=== PATIENT | female | born 1950 | race African-American/Black ===

== ENCOUNTER 2017-12-25 17:47 | Inpatient (IN) | payer MEDICARE, OTHER ==
[2017-12-25] MEDS: ONDANSETRON (ODT) 4 MG TAB ODT (18:18)
[2017-12-25] MEDS: HYDROCODONE/APAP (5/325) TAB PO (18:19)
[2017-12-25] MEDS ORDERED: NA PHOSPHATE/BIPHOS 133 ML ENEMA PR (19:30)
[2017-12-25] MEDS ORDERED: NACL 0.9% 3 ML SYG IV (19:30)
[2017-12-25] MEDS ORDERED: NITROGLYCERIN (SL) 0.4 MG TAB SL (19:30)
[2017-12-25 19:34] LABS: ADD MAN DIFF? NO
[2017-12-25] MEDS: ONDANSETRON 4 MG INJ IV (19:35)
[2017-12-25] MEDS: morphine 4 MG/ML VIAL IV (19:36)
[2017-12-25 19:40] LABS: ABNORMAL IP MESSAGE 1; BASOPHILS % 0.2 % (0.0-2.0); EOSINOPHILS # 0.1 10^3/ul (0.0-0.5); EOSINOPHILS % 1.1 % (0.0-7.0); HEMATOCRIT 29.6 % (37.0-47.0); HEMOGLOBIN 8.4 g/dl (12.0-16.0); LYMPHOCYTES # 1.7 10^3/ul (0.8-2.9); LYMPHOCYTES % 20.4 % (15.0-51.0); MEAN CORPUSCULAR HGB CONC 28.4 g/dl (32.0-37.0); MEAN CORPUSCULAR VOLUME 88.1 fl (82.0-101.0); MEAN PLATELET VOLUME 11.2 fl (7.4-10.4); MONOCYTE # 0.8 10^3/ul (0.3-0.9); MONOCYTES % 9.4 % (0.0-11.0); NEUTROPHIL # 5.5 10^3/ul (1.6-7.5); NEUTROPHILS % 68.4 % (39.0-77.0); PLATELET COUNT 276 10^3/UL (140-415); RED BLOOD COUNT 3.36 10^6/ul (4.20-5.40); RED CELL DISTRIBUTION WIDTH 17.7 % (11.5-14.5)
[2017-12-25 19:40] LABS: WHITE BLOOD COUNT 8.1 10^3/ul (4.8-10.8)
[2017-12-25 19:41] LABS: POSITIVE DIFF @See below
[2017-12-25] MEDS: HYDROmorphONE 0.5 MG/0.5 ML SYG IV (19:52)
[2017-12-25 20:00] LABS: ANION GAP 11 (8-16); BLOOD UREA NITROGEN 33 mg/dl (7-20); CALCIUM 9.1 mg/dl (8.4-10.2); CARBON DIOXIDE 32 mmol/L (21-31); CHLORIDE 104 mmol/L (97-110); CREATININE 1.55 mg/dl (0.44-1.00); GLUCOSE 202 mg/dl (70-220); SODIUM 141 mmol/L (135-144)
[2017-12-25 20:01] LABS: POTASSIUM 5.7 mmol/L (3.5-5.1)
[2017-12-25 20:02] LABS: INR 1.04; PARTIAL THROMBOPLASTIN TIME 24.3 Sec (23.0-35.0); PROTIME 13.7 Sec (11.9-14.9); PT RATIO 1.1
[2017-12-25] MEDS: SOD CHLORIDE 0.45% 1,000 ML IV (20:40)
[2017-12-25] MEDS ORDERED: GLUCOSE GEL 15 GRAM TUBE PO ×2 (21:00)
[2017-12-25] MEDS ORDERED: DEXTROSE 50% 50 ML SYRINGE IV ×2 (21:00)
[2017-12-25] MEDS ORDERED: GLUCOSE GEL 15 GRAM TUBE BUCCAL (21:00)
[2017-12-25] MEDS ORDERED: GLUCAGON 1 MG INJ IM (21:00)
[2017-12-25] MEDS: HEPARIN 5,000 UNIT/0.5 ML VIAL SC (21:45)
[2017-12-25] MEDS: INSULIN ASPART [NOVOLOG] 3 ML PEN SC (22:58)
[2017-12-26] MEDS: ACCU-CHEK XX (02:00)
[2017-12-26] MEDS: INSULIN ASPART [NOVOLOG] 3 ML PEN SC ×6 (02:25→21:25)
[2017-12-26] MEDS: hydrALAzine 20 MG INJ IV ×2 (02:34→15:29)
[2017-12-26] MEDS: NA POLYST SULFON 15 GM/60 ML BTL PR (03:13)
[2017-12-26 05:44] LABS: ADD MAN DIFF? NO
[2017-12-26] MEDS: PANTOPRAZOLE 40 MG INJ IV (05:49)
[2017-12-26 05:51] LABS: WHITE BLOOD COUNT 8.5 10^3/ul (4.8-10.8)
[2017-12-26 05:51] LABS: ABNORMAL IP MESSAGE 1; BASOPHILS % 0.4 % (0.0-2.0); EOSINOPHILS # 0.1 10^3/ul (0.0-0.5); EOSINOPHILS % 1.2 % (0.0-7.0); HEMATOCRIT 30.6 % (37.0-47.0); HEMOGLOBIN 8.4 g/dl (12.0-16.0); LYMPHOCYTES # 2.5 10^3/ul (0.8-2.9); LYMPHOCYTES % 29.1 % (15.0-51.0); MEAN CORPUSCULAR HEMOGLOBIN 24.9 pg (29.0-33.0); MEAN CORPUSCULAR HGB CONC 27.5 g/dl (32.0-37.0); MEAN CORPUSCULAR VOLUME 90.8 fl (82.0-101.0); MEAN PLATELET VOLUME 10.9 fl (7.4-10.4); MONOCYTE # 0.9 10^3/ul (0.3-0.9); NEUTROPHIL # 4.9 10^3/ul (1.6-7.5); NEUTROPHILS % 56.8 % (39.0-77.0); PLATELET COUNT 245 10^3/UL (140-415); RED BLOOD COUNT 3.37 10^6/ul (4.20-5.40); RED CELL DISTRIBUTION WIDTH 17.6 % (11.5-14.5)
[2017-12-26 06:11] LABS: CHOL/HDL RATIO 2.1 RATIO; HDL CHOLESTEROL 47 mg/dl (35-98); LDL CHOLESTEROL,CALCULATED 37 mg/dl; TRIGLYCERIDES 84 mg/dl (0-149)
[2017-12-26 06:11] LABS: CHOLESTEROL 101 mg/dl (100-200)
[2017-12-26 06:16] LABS: ANION GAP 11 (8-16); BLOOD UREA NITROGEN 31 mg/dl (7-20); CALCIUM 8.9 mg/dl (8.4-10.2); CARBON DIOXIDE 32 mmol/L (21-31); CHLORIDE 105 mmol/L (97-110); CREATININE 1.55 mg/dl (0.44-1.00); GLUCOSE 148 mg/dl (70-220); POTASSIUM 5.4 mmol/L (3.5-5.1); SODIUM 143 mmol/L (135-144)
[2017-12-26 06:45] LABS: HEMOGLOBIN A1C 7.3 % (0-5.9)
[2017-12-26 07:02] LABS: POSITIVE DIFF @See below
[2017-12-26 08:08] LABS: IRON 29 ug/dl (35-150)
[2017-12-26 08:17] LABS: % IRON SATURATION 9 % SAT (22-52); TOTAL IRON BINDING CAPACITY 336 ug/dl (241-421)
[2017-12-26 09:16] LABS: FERRITIN 23.8 ng/ml (11.1-264.0)
[2017-12-26] MEDS: morphine 2 MG INJ IV ×2 (09:52→17:32)
[2017-12-26] MEDS: HEPARIN 5,000 UNIT/0.5 ML VIAL SC ×2 (09:52→21:26)
[2017-12-26] MEDS: SOD CHLORIDE 0.45% 1,000 ML IV (09:53)
[2017-12-26] MEDS: morphine 4 MG/ML VIAL IV (11:20)
[2017-12-26] MEDS: ALBUTEROL/IPRATROPIUM (NEB) 3 ML AMP HHN ×2 (16:38→20:07)
[2017-12-26] MEDS: LABETALOL HCL 20MG INJ IV (17:34)
[2017-12-26] MEDS: ASPIRIN (EC) 81 MG TAB PO ×2 (18:00→18:09)
[2017-12-26] MEDS: niCARdipine 50 MG in SOD CHLORIDE 0.9% 480 ML IV (18:32)
[2017-12-26 19:37] LABS: AADO2 Arterial 274.3 mmHg (7.0-24.0); Arterial Base Excess 0.1 mmol/L (-3.0-3); Arterial Blood Gas Oxygen Sat 92.8 mmHG (95.0-98.0); Arterial COHb 0.8 % (0.0-3.0); Arterial Fraction of Oxyhgb 91.7 % (93.0-99.0); Arterial HCO3 29.4 mmol/L (22.0-26.0); Arterial MetHb 0.4 % (0.0-1.5); Arterial Total Hemglobin 10.2 g/dl (12.0-18.0); MODE MASK - SIMPLE; Site LB
[2017-12-26 19:39] LABS: B-TYPE NATRIURETIC PEPTIDE 4390 PG/ML (0-125)
[2017-12-26] MEDS: FUROSEMIDE 20 MG INJ IV (20:16)
[2017-12-26] MEDS: LEVOFLOXACIN 500MG/D5W (PMX) 100 ML IVPB (20:16)
[2017-12-26] MEDS: MIRTAZAPINE 15 MG TAB PO (21:32)
[2017-12-26] MEDS: BENZTROPINE 1 MG TAB PO (21:33)
[2017-12-26] MEDS: ATORVASTATIN 20 MG TAB PO (21:33)
[2017-12-26] MEDS: ARIPIPRAZOLE 5 MG TAB PO (21:33)
[2017-12-26] MEDS: NIFEdipine (XL) 60 MG TAB PO (21:49)
[2017-12-26 22:45] LABS: AADO2 Arterial 215.3 mmHg (7.0-24.0); Arterial Base Excess -2.2 mmol/L (-3.0-3); Arterial Blood Gas Oxygen Sat 92.7 mmHG (95.0-98.0); Arterial Fraction of Oxyhgb 91.5 % (93.0-99.0); Arterial HCO3 25.6 mmol/L (22.0-26.0); Arterial MetHb 0.3 % (0.0-1.5); Arterial Total Hemglobin 9.9 g/dl (12.0-18.0); Arterial pCO2 60.5 mmhg (35-45); Blood Gas IEPAP 18/5; Blood Gas PS 13; MODE MASK - BIPAP; Site LB
[2017-12-27] MEDS: ACCU-CHEK XX (01:14)
[2017-12-27] MEDS: INSULIN ASPART [NOVOLOG] 3 ML PEN SC ×6 (01:14→20:37)
[2017-12-27 05:13] LABS: ADD MAN DIFF? NO
[2017-12-27 05:18] LABS: AADO2 Arterial 218.4 mmHg (7.0-24.0); ABNORMAL IP MESSAGE 1; Arterial Base Excess -0.3 mmol/L (-3.0-3); Arterial Blood Gas Oxygen Sat 93.7 mmHG (95.0-98.0); Arterial Fraction of Oxyhgb 92.5 % (93.0-99.0); Arterial HCO3 26.6 mmol/L (22.0-26.0); Arterial MetHb 0.3 % (0.0-1.5); Arterial Total Hemglobin 9.2 g/dl (12.0-18.0); Arterial pCO2 55.8 mmhg (35-45); BASOPHILS % 0.3 % (0.0-2.0); Blood Gas IEPAP 18/5; Blood Gas PS 13; EOSINOPHILS % 0.5 % (0.0-7.0); HEMATOCRIT 29.4 % (37.0-47.0); HEMOGLOBIN 8.2 g/dl (12.0-16.0); LYMPHOCYTES # 1.8 10^3/ul (0.8-2.9); LYMPHOCYTES % 23.2 % (15.0-51.0); MEAN CORPUSCULAR HEMOGLOBIN 25.3 pg (29.0-33.0); MEAN CORPUSCULAR HGB CONC 27.9 g/dl (32.0-37.0); MEAN CORPUSCULAR VOLUME 90.7 fl (82.0-101.0); MEAN PLATELET VOLUME 11.2 fl (7.4-10.4); MODE MASK - BIPAP; MONOCYTE # 0.9 10^3/ul (0.3-0.9); MONOCYTES % 12.1 % (0.0-11.0); NEUTROPHIL # 4.6 10^3/ul (1.6-7.5); NUCLEATED RED BLOOD CELLS% 0.4 /100WBC (0.0-0.0); PLATELET COUNT 243 10^3/UL (140-415); RED BLOOD COUNT 3.24 10^6/ul (4.20-5.40); RED CELL DISTRIBUTION WIDTH 17.5 % (11.5-14.5); Site LB
[2017-12-27 05:18] LABS: WHITE BLOOD COUNT 7.6 10^3/ul (4.8-10.8)
[2017-12-27 05:37] LABS: POSITIVE DIFF @See below
[2017-12-27 06:02] LABS: ANION GAP 10 (8-16); BLOOD UREA NITROGEN 28 mg/dl (7-20); CALCIUM 8.7 mg/dl (8.4-10.2); CARBON DIOXIDE 31 mmol/L (21-31); CHLORIDE 105 mmol/L (97-110); CREATININE 1.44 mg/dl (0.44-1.00); GLUCOSE 107 mg/dl (70-220); POTASSIUM 5.2 mmol/L (3.5-5.1); SODIUM 141 mmol/L (135-144)
[2017-12-27] MEDS: PANTOPRAZOLE 40 MG INJ IV (06:06)
[2017-12-27] MEDS: ALBUTEROL/IPRATROPIUM (NEB) 3 ML AMP HHN ×3 (07:46→20:31)
[2017-12-27] MEDS: DULOXETINE 30 MG CAP DR PO (09:54)
[2017-12-27] MEDS: ISOSORBIDE MONONITRATE(SR)60 MG TAB PO (09:54)
[2017-12-27] MEDS: NIFEdipine (XL) 60 MG TAB PO ×2 (09:55→20:36)
[2017-12-27] MEDS: ASPIRIN (EC) 81 MG TAB PO (09:55)
[2017-12-27] MEDS: FLUTICASONE 0.05% 16 GM NAS SPRAY NASAL (09:57)
[2017-12-27] MEDS: HEPARIN 5,000 UNIT/0.5 ML VIAL SC ×2 (09:59→21:22)
[2017-12-27] MEDS: hydrALAzine 20 MG INJ IV (10:54)
[2017-12-27] MEDS ORDERED: LISINOPRIL 10 MG TAB PO (16:30)
[2017-12-27] MEDS: LEVOFLOXACIN 250MG/D5W (PMX) 50 ML IVPB (20:33)
[2017-12-27] MEDS: MIRTAZAPINE 15 MG TAB PO (20:34)
[2017-12-27] MEDS: BENZTROPINE 1 MG TAB PO (20:35)
[2017-12-27] MEDS: ARIPIPRAZOLE 5 MG TAB PO (20:35)
[2017-12-27] MEDS: ATORVASTATIN 20 MG TAB PO (20:35)
[2017-12-27] MEDS: LISINOPRIL 20 MG TAB PO (20:36)
[2017-12-27] MEDS: morphine 2 MG INJ IV (20:57)
[2017-12-27] MEDS: LORAZEPAM 2 MG INJ IV (22:08)
[2017-12-28] MEDS: ACETAMINOPHEN 325 MG TAB PO (00:19)
[2017-12-28] MEDS: INSULIN ASPART [NOVOLOG] 3 ML PEN SC ×6 (01:00→21:00)
[2017-12-28 01:05] LABS: ADD UMIC YES; UR ASCORBIC ACID NEGATIVE (NEGATIVE); UR BILIRUBIN (Dip) NEGATIVE (NEGATIVE); UR BLOOD (Dip) NEGATIVE (NEGATIVE); UR CLARITY SLIGHTLY CLOUDY (CLEAR); UR COLOR YELLOW (YELLOW); UR GLUCOSE (Dip) NEGATIVE (NEGATIVE); UR KETONES (Dip) TRACE mg/dL (NEGATIVE); UR LEUKOCYTE ESTERASE (Dip) NEGATIVE Leu/ul (NEGATIVE); UR MUCUS FEW /HPF (NONE SEEN); UR NITRITE (Dip) NEGATIVE (NEGATIVE); UR RBC 2 /HPF (0-5); UR SPECIFIC GRAVITY (Dip) 1.017 (1.003-1.030); UR TOTAL PROTEIN (Dip) 3+ mg/dl (NEGATIVE); UR UROBILINOGEN (Dip) 1+ mg/dL (NEGATIVE); UR WBC 9 /HPF (0-5)
[2017-12-28 01:20] LABS: AADO2 Arterial 121.8 mmHg (7.0-24.0); Allen Test ACCEPTAB; Arterial Base Excess 1.7 mmol/L (-3.0-3); Arterial Blood Gas Oxygen Sat 93.6 mmHG (95.0-98.0); Arterial COHb 0.9 % (0.0-3.0); Arterial Fraction of Oxyhgb 92.5 % (93.0-99.0); Arterial HCO3 27.8 mmol/L (22.0-26.0); Arterial MetHb 0.3 % (0.0-1.5); Arterial Total Hemglobin 9.1 g/dl (12.0-18.0); Arterial pCO2 51.7 mmhg (35-45); MODE NASAL CANNULA; Site Right Radial
[2017-12-28] MEDS: ACCU-CHEK XX (02:02)
[2017-12-28 02:20] LABS: LACTIC ACID 0.9 mmol/L (0.5-2.0)
[2017-12-28 05:50] LABS: ADD MAN DIFF? NO
[2017-12-28] MEDS: PANTOPRAZOLE 40 MG INJ IV (05:51)
[2017-12-28 05:58] LABS: BASOPHILS % 0.3 % (0.0-2.0); EOSINOPHILS # 0.1 10^3/ul (0.0-0.5); EOSINOPHILS % 0.6 % (0.0-7.0); HEMATOCRIT 26.9 % (37.0-47.0); HEMOGLOBIN 7.8 g/dl (12.0-16.0); LYMPHOCYTES # 1.8 10^3/ul (0.8-2.9); LYMPHOCYTES % 23.1 % (15.0-51.0); MEAN CORPUSCULAR HEMOGLOBIN 25.2 pg (29.0-33.0); MEAN CORPUSCULAR VOLUME 86.8 fl (82.0-101.0); MEAN PLATELET VOLUME 11.3 fl (7.4-10.4); MONOCYTES % 12.3 % (0.0-11.0); NEUTROPHILS % 62.6 % (39.0-77.0); PLATELET COUNT 288 10^3/UL (140-415); RED CELL DISTRIBUTION WIDTH 17.6 % (11.5-14.5)
[2017-12-28 06:32] LABS: ANION GAP 10 (8-16); BLOOD UREA NITROGEN 32 mg/dl (7-20); CALCIUM 8.6 mg/dl (8.4-10.2); CARBON DIOXIDE 30 mmol/L (21-31); CHLORIDE 103 mmol/L (97-110); CREATININE 1.61 mg/dl (0.44-1.00); GLUCOSE 131 mg/dl (70-220); POTASSIUM 4.7 mmol/L (3.5-5.1); SODIUM 138 mmol/L (135-144)
[2017-12-28] MEDS: ALBUTEROL/IPRATROPIUM (NEB) 3 ML AMP HHN ×3 (07:38→20:42)
[2017-12-28] MEDS: LISINOPRIL 20 MG TAB PO ×2 (08:49→21:43)
[2017-12-28] MEDS: DULOXETINE 30 MG CAP DR PO (08:49)
[2017-12-28] MEDS: ASPIRIN (EC) 81 MG TAB PO (08:49)
[2017-12-28] MEDS: ISOSORBIDE MONONITRATE(SR)60 MG TAB PO (08:50)
[2017-12-28] MEDS: NIFEdipine (XL) 60 MG TAB PO ×2 (08:50→21:43)
[2017-12-28] MEDS: HEPARIN 5,000 UNIT/0.5 ML VIAL SC ×2 (08:56→22:04)
[2017-12-28] MEDS: FLUTICASONE 0.05% 16 GM NAS SPRAY NASAL (09:51)
[2017-12-28] MEDS: FUROSEMIDE 40 MG INJ IV ×2 (12:09→18:55)
[2017-12-28] MEDS: morphine 2 MG INJ IV ×2 (12:52→23:33)
[2017-12-28] MEDS: ARIPIPRAZOLE 5 MG TAB PO (21:42)
[2017-12-28] MEDS: MIRTAZAPINE 15 MG TAB PO (21:43)
[2017-12-28] MEDS: ATORVASTATIN 20 MG TAB PO (21:43)
[2017-12-28] MEDS: LEVOFLOXACIN 250MG/D5W (PMX) 50 ML IVPB (21:45)
[2017-12-28] MEDS: BENZTROPINE 1 MG TAB PO (23:32)
[2017-12-29] MEDS: ACCU-CHEK XX (02:00)
[2017-12-29] MEDS: LORAZEPAM 2 MG INJ IV (02:58)
[2017-12-29] MEDS: morphine 2 MG INJ IV (03:44)
[2017-12-29] MEDS: PANTOPRAZOLE 40 MG INJ IV (05:02)
[2017-12-29] MEDS: hydrALAzine 20 MG INJ IV (05:02)
[2017-12-29] MEDS: FUROSEMIDE 40 MG INJ IV ×2 (05:02→17:29)
[2017-12-29] MEDS: INSULIN ASPART [NOVOLOG] 3 ML PEN SC ×5 (07:34→20:45)
[2017-12-29] MEDS: ASPIRIN (EC) 81 MG TAB PO (08:22)
[2017-12-29] MEDS: DULOXETINE 30 MG CAP DR PO (08:22)
[2017-12-29] MEDS: NIFEdipine (XL) 60 MG TAB PO ×2 (08:25→20:44)
[2017-12-29] MEDS: LISINOPRIL 20 MG TAB PO (08:25)
[2017-12-29] MEDS: ISOSORBIDE MONONITRATE(SR)60 MG TAB PO (08:25)
[2017-12-29] MEDS: HEPARIN 5,000 UNIT/0.5 ML VIAL SC ×2 (08:30→22:08)
[2017-12-29] MEDS: FLUTICASONE 0.05% 16 GM NAS SPRAY NASAL (08:31)
[2017-12-29] MEDS: ALBUTEROL/IPRATROPIUM (NEB) 3 ML AMP HHN ×3 (08:43→20:20)
[2017-12-29 11:07] LABS: ADD MAN DIFF? NO
[2017-12-29 11:13] LABS: BASOPHILS % 0.4 % (0.0-2.0); EOSINOPHILS # 0.3 10^3/ul (0.0-0.5); EOSINOPHILS % 3.3 % (0.0-7.0); HEMATOCRIT 26.9 % (37.0-47.0); HEMOGLOBIN 7.9 g/dl (12.0-16.0); LYMPHOCYTES # 1.8 10^3/ul (0.8-2.9); LYMPHOCYTES % 23.4 % (15.0-51.0); MEAN CORPUSCULAR HEMOGLOBIN 24.8 pg (29.0-33.0); MEAN CORPUSCULAR HGB CONC 29.4 g/dl (32.0-37.0); MEAN CORPUSCULAR VOLUME 84.3 fl (82.0-101.0); MEAN PLATELET VOLUME 9.9 fl (7.4-10.4); MONOCYTE # 0.8 10^3/ul (0.3-0.9); MONOCYTES % 10.4 % (0.0-11.0); NEUTROPHIL # 4.8 10^3/ul (1.6-7.5); NEUTROPHILS % 62.1 % (39.0-77.0); PLATELET COUNT 281 10^3/UL (140-415); RED BLOOD COUNT 3.19 10^6/ul (4.20-5.40); RED CELL DISTRIBUTION WIDTH 17.4 % (11.5-14.5)
[2017-12-29 11:13] LABS: WHITE BLOOD COUNT 7.7 10^3/ul (4.8-10.8)
[2017-12-29 11:50] LABS: ANION GAP 9 (8-16); BLOOD UREA NITROGEN 31 mg/dl (7-20); CALCIUM 8.9 mg/dl (8.4-10.2); CARBON DIOXIDE 33 mmol/L (21-31); CHLORIDE 100 mmol/L (97-110); CREATININE 1.54 mg/dl (0.44-1.00); GLUCOSE 196 mg/dl (70-220); POTASSIUM 4.6 mmol/L (3.5-5.1); SODIUM 137 mmol/L (135-144)
[2017-12-29] MEDS: INSULIN GLARGINE [LANTus] (100 UNITS/ML) SYG SC (13:00)
[2017-12-29] MEDS: SOD FERRIC GLUC COMPLX 125 MG in SOD CHLORIDE 0.9% 100 ML IVPB (17:29)
[2017-12-29] MEDS: ARIPIPRAZOLE 5 MG TAB PO (20:43)
[2017-12-29] MEDS: BENZTROPINE 1 MG TAB PO (20:44)
[2017-12-29] MEDS: MIRTAZAPINE 15 MG TAB PO (20:44)
[2017-12-29] MEDS: ATORVASTATIN 20 MG TAB PO (20:44)
[2017-12-29] MEDS: HYDROCODONE/APAP (5/325) TAB PO (22:00)
[2017-12-30] MEDS: FUROSEMIDE 40 MG INJ IV ×2 (05:28→17:38)
[2017-12-30 06:02] LABS: ADD MAN DIFF? NO
[2017-12-30 06:06] LABS: BASOPHILS % 0.3 % (0.0-2.0); EOSINOPHILS # 0.2 10^3/ul (0.0-0.5); EOSINOPHILS % 3.2 % (0.0-7.0); HEMATOCRIT 27.9 % (37.0-47.0); HEMOGLOBIN 8.2 g/dl (12.0-16.0); LYMPHOCYTES # 1.7 10^3/ul (0.8-2.9); LYMPHOCYTES % 24.6 % (15.0-51.0); MEAN CORPUSCULAR HEMOGLOBIN 25.1 pg (29.0-33.0); MEAN CORPUSCULAR HGB CONC 29.4 g/dl (32.0-37.0); MEAN CORPUSCULAR VOLUME 85.3 fl (82.0-101.0); MEAN PLATELET VOLUME 10.2 fl (7.4-10.4); MONOCYTE # 0.8 10^3/ul (0.3-0.9); MONOCYTES % 11.6 % (0.0-11.0); NEUTROPHIL # 4.1 10^3/ul (1.6-7.5); PLATELET COUNT 266 10^3/UL (140-415); RED BLOOD COUNT 3.27 10^6/ul (4.20-5.40); RED CELL DISTRIBUTION WIDTH 17.2 % (11.5-14.5)
[2017-12-30 06:06] LABS: WHITE BLOOD COUNT 6.8 10^3/ul (4.8-10.8)
[2017-12-30 07:04] LABS: ANION GAP 7 (8-16); BLOOD UREA NITROGEN 29 mg/dl (7-20); CALCIUM 8.8 mg/dl (8.4-10.2); CARBON DIOXIDE 35 mmol/L (21-31); CHLORIDE 100 mmol/L (97-110); CREATININE 1.51 mg/dl (0.44-1.00); GLUCOSE 179 mg/dl (70-220); POTASSIUM 4.3 mmol/L (3.5-5.1); SODIUM 138 mmol/L (135-144)
[2017-12-30] MEDS: INSULIN ASPART [NOVOLOG] 3 ML PEN SC ×7 (07:48→21:44)
[2017-12-30] MEDS: INSULIN GLARGINE [LANTus] (100 UNITS/ML) SYG SC (07:52)
[2017-12-30] MEDS: ASPIRIN (EC) 81 MG TAB PO (08:17)
[2017-12-30] MEDS: FLUTICASONE 0.05% 16 GM NAS SPRAY NASAL (08:17)
[2017-12-30] MEDS: DULOXETINE 30 MG CAP DR PO (08:18)
[2017-12-30] MEDS: ISOSORBIDE MONONITRATE(SR)60 MG TAB PO (08:18)
[2017-12-30] MEDS: NIFEdipine (XL) 60 MG TAB PO ×2 (08:18→20:37)
[2017-12-30] MEDS: HEPARIN 5,000 UNIT/0.5 ML VIAL SC ×2 (08:21→21:43)
[2017-12-30] MEDS: ALBUTEROL/IPRATROPIUM (NEB) 3 ML AMP HHN ×3 (08:46→19:38)
[2017-12-30] MEDS: SOD FERRIC GLUC COMPLX 125 MG in SOD CHLORIDE 0.9% 100 ML IVPB (16:50)
[2017-12-30] MEDS: HYDROCODONE/APAP (5/325) TAB PO (20:36)
[2017-12-30] MEDS: ARIPIPRAZOLE 5 MG TAB PO (20:37)
[2017-12-30] MEDS: ATORVASTATIN 20 MG TAB PO (20:38)
[2017-12-30] MEDS: MIRTAZAPINE 15 MG TAB PO (20:38)
[2017-12-30] MEDS: BENZTROPINE 1 MG TAB PO (20:38)
[2017-12-31 05:54] LABS: ADD MAN DIFF? NO
[2017-12-31 06:06] LABS: BASOPHILS % 0.6 % (0.0-2.0); EOSINOPHILS # 0.4 10^3/ul (0.0-0.5); EOSINOPHILS % 6.1 % (0.0-7.0); HEMATOCRIT 29.3 % (37.0-47.0); HEMOGLOBIN 8.6 g/dl (12.0-16.0); LYMPHOCYTES # 1.7 10^3/ul (0.8-2.9); LYMPHOCYTES % 25.4 % (15.0-51.0); MEAN CORPUSCULAR HEMOGLOBIN 25.2 pg (29.0-33.0); MEAN CORPUSCULAR HGB CONC 29.4 g/dl (32.0-37.0); MEAN CORPUSCULAR VOLUME 85.9 fl (82.0-101.0); MEAN PLATELET VOLUME 10.6 fl (7.4-10.4); MONOCYTE # 0.7 10^3/ul (0.3-0.9); MONOCYTES % 9.6 % (0.0-11.0); NEUTROPHIL # 3.9 10^3/ul (1.6-7.5); NEUTROPHILS % 58.2 % (39.0-77.0); PLATELET COUNT 272 10^3/UL (140-415); RED BLOOD COUNT 3.41 10^6/ul (4.20-5.40); RED CELL DISTRIBUTION WIDTH 17.2 % (11.5-14.5)
[2017-12-31 06:06] LABS: WHITE BLOOD COUNT 6.7 10^3/ul (4.8-10.8)
[2017-12-31 06:28] LABS: BLOOD UREA NITROGEN 31 mg/dl (7-20); CALCIUM 8.5 mg/dl (8.4-10.2); CARBON DIOXIDE 35 mmol/L (21-31); CHLORIDE 101 mmol/L (97-110); CREATININE 1.48 mg/dl (0.44-1.00); GLUCOSE 184 mg/dl (70-220); SODIUM 142 mmol/L (135-144)
[2017-12-31] MEDS: FUROSEMIDE 40 MG INJ IV ×2 (06:42→17:12)
[2017-12-31] MEDS: INSULIN ASPART [NOVOLOG] 3 ML PEN SC ×7 (07:46→21:00)
[2017-12-31] MEDS: INSULIN GLARGINE [LANTus] (100 UNITS/ML) SYG SC (07:57)
[2017-12-31] MEDS: ISOSORBIDE MONONITRATE(SR)60 MG TAB PO (08:16)
[2017-12-31] MEDS: NIFEdipine (XL) 60 MG TAB PO ×2 (08:16→21:19)
[2017-12-31] MEDS: FLUTICASONE 0.05% 16 GM NAS SPRAY NASAL (08:16)
[2017-12-31] MEDS: DULOXETINE 30 MG CAP DR PO (08:16)
[2017-12-31] MEDS: ASPIRIN (EC) 81 MG TAB PO (08:16)
[2017-12-31] MEDS: HEPARIN 5,000 UNIT/0.5 ML VIAL SC (08:24)
[2017-12-31] MEDS: ALBUTEROL/IPRATROPIUM (NEB) 3 ML AMP HHN ×3 (08:59→20:08)
[2017-12-31 09:22] LABS: ANION GAP 6 (5-13)
[2017-12-31] MEDS: HEPARIN SODIUM 5,000 UNIT/ML VIAL SC ×2 (12:00→21:49)
[2017-12-31] MEDS: METOLAZONE 5 MG TAB PO (12:30)
[2017-12-31] MEDS: SOD FERRIC GLUC COMPLX 125 MG in SOD CHLORIDE 0.9% 100 ML IVPB (17:12)
[2017-12-31] MEDS ORDERED: HEPARIN 5,000 UNIT/0.5 ML VIAL (21:07)
[2017-12-31] MEDS: ARIPIPRAZOLE 5 MG TAB PO (21:18)
[2017-12-31] MEDS: MIRTAZAPINE 15 MG TAB PO (21:19)
[2017-12-31] MEDS: ATORVASTATIN 20 MG TAB PO (21:20)
[2017-12-31] MEDS: BENZTROPINE 1 MG TAB PO (21:20)
[2017-12-31] MEDS: HYDROCODONE/APAP (5/325) TAB PO (21:22)
[2018-01-01] MEDS: HYDROCODONE/APAP (5/325) TAB PO (04:23)
[2018-01-01] MEDS: FUROSEMIDE 40 MG INJ IV ×2 (05:18→18:19)
[2018-01-01] MEDS: ONDANSETRON 4 MG INJ IV (05:24)
[2018-01-01] MEDS: MAGNESIUM HYDROXIDE 30ML CUP PO (05:24)
[2018-01-01 05:26] LABS: ADD MAN DIFF? NO
[2018-01-01 05:29] LABS: WHITE BLOOD COUNT 7.1 10^3/ul (4.8-10.8)
[2018-01-01 05:29] LABS: ABNORMAL IP MESSAGE 1; BASOPHILS % 0.6 % (0.0-2.0); EOSINOPHILS # 0.4 10^3/ul (0.0-0.5); EOSINOPHILS % 5.2 % (0.0-7.0); HEMATOCRIT 33.2 % (37.0-47.0); HEMOGLOBIN 9.6 g/dl (12.0-16.0); LYMPHOCYTES # 2.2 10^3/ul (0.8-2.9); LYMPHOCYTES % 31.2 % (15.0-51.0); MEAN CORPUSCULAR HEMOGLOBIN 24.7 pg (29.0-33.0); MEAN CORPUSCULAR HGB CONC 28.9 g/dl (32.0-37.0); MEAN CORPUSCULAR VOLUME 85.3 fl (82.0-101.0); MEAN PLATELET VOLUME 10.6 fl (7.4-10.4); MONOCYTE # 0.7 10^3/ul (0.3-0.9); MONOCYTES % 9.6 % (0.0-11.0); NEUTROPHIL # 3.8 10^3/ul (1.6-7.5); NEUTROPHILS % 53.1 % (39.0-77.0); PLATELET COUNT 324 10^3/UL (140-415); RED BLOOD COUNT 3.89 10^6/ul (4.20-5.40); RED CELL DISTRIBUTION WIDTH 17.2 % (11.5-14.5)
[2018-01-01 05:46] LABS: ANION GAP 8 (5-13); BLOOD UREA NITROGEN 29 mg/dl (7-20); CALCIUM 9.4 mg/dl (8.4-10.2); CARBON DIOXIDE 35 mmol/L (21-31); CHLORIDE 99 mmol/L (97-110); CREATININE 1.35 mg/dl (0.44-1.00); GLUCOSE 168 mg/dl (70-220); POTASSIUM 3.6 mmol/L (3.5-5.1); SODIUM 142 mmol/L (135-144)
[2018-01-01 06:01] LABS: POSITIVE DIFF @See below
[2018-01-01] MEDS: INSULIN ASPART [NOVOLOG] 3 ML PEN SC ×7 (08:00→21:00)
[2018-01-01] MEDS ORDERED: HEPARIN 5,000 UNIT/0.5 ML VIAL ×2 (08:46→20:47)
[2018-01-01] MEDS: DULOXETINE 30 MG CAP DR PO (08:51)
[2018-01-01] MEDS: NIFEdipine (XL) 60 MG TAB PO ×2 (08:52→20:53)
[2018-01-01] MEDS: ASPIRIN (EC) 81 MG TAB PO (08:52)
[2018-01-01] MEDS: ISOSORBIDE MONONITRATE(SR)60 MG TAB PO (08:52)
[2018-01-01] MEDS: METOLAZONE 5 MG TAB PO (08:54)
[2018-01-01] MEDS: FLUTICASONE 0.05% 16 GM NAS SPRAY NASAL (09:00)
[2018-01-01] MEDS: HEPARIN SODIUM 5,000 UNIT/ML VIAL SC ×2 (09:01→22:04)
[2018-01-01] MEDS: INSULIN GLARGINE [LANTus] (100 UNITS/ML) SYG SC (09:02)
[2018-01-01] MEDS: ALBUTEROL/IPRATROPIUM (NEB) 3 ML AMP HHN ×3 (09:15→20:55)
[2018-01-01] MEDS: SOD FERRIC GLUC COMPLX 125 MG in SOD CHLORIDE 0.9% 100 ML IVPB (18:18)
[2018-01-01] MEDS: ARIPIPRAZOLE 5 MG TAB PO (20:51)
[2018-01-01] MEDS: ATORVASTATIN 20 MG TAB PO (20:52)
[2018-01-02] MEDS: FUROSEMIDE 40 MG INJ IV ×2 (05:56→17:35)
[2018-01-02 06:14] LABS: ADD MAN DIFF? NO
[2018-01-02 06:23] LABS: WHITE BLOOD COUNT 6.9 10^3/ul (4.8-10.8)
[2018-01-02 06:23] LABS: ABNORMAL IP MESSAGE 1; BASOPHILS % 0.4 % (0.0-2.0); EOSINOPHILS # 0.3 10^3/ul (0.0-0.5); EOSINOPHILS % 4.5 % (0.0-7.0); HEMATOCRIT 31.2 % (37.0-47.0); LYMPHOCYTES # 2.5 10^3/ul (0.8-2.9); LYMPHOCYTES % 35.9 % (15.0-51.0); MEAN CORPUSCULAR HEMOGLOBIN 25.1 pg (29.0-33.0); MEAN CORPUSCULAR HGB CONC 28.8 g/dl (32.0-37.0); MEAN CORPUSCULAR VOLUME 86.9 fl (82.0-101.0); MEAN PLATELET VOLUME 10.1 fl (7.4-10.4); MONOCYTE # 0.6 10^3/ul (0.3-0.9); MONOCYTES % 9.3 % (0.0-11.0); NEUTROPHIL # 3.4 10^3/ul (1.6-7.5); PLATELET COUNT 295 10^3/UL (140-415); RED BLOOD COUNT 3.59 10^6/ul (4.20-5.40); RED CELL DISTRIBUTION WIDTH 17.2 % (11.5-14.5)
[2018-01-02 06:45] LABS: ANION GAP 7 (5-13); BLOOD UREA NITROGEN 30 mg/dl (7-20); CALCIUM 8.9 mg/dl (8.4-10.2); CARBON DIOXIDE 38 mmol/L (21-31); CHLORIDE 95 mmol/L (97-110); CREATININE 1.39 mg/dl (0.44-1.00); GLUCOSE 142 mg/dl (70-220); POTASSIUM 3.7 mmol/L (3.5-5.1); SODIUM 140 mmol/L (135-144)
[2018-01-02 07:23] LABS: POSITIVE DIFF @See below
[2018-01-02] MEDS: INSULIN ASPART [NOVOLOG] 3 ML PEN SC ×7 (08:02→20:53)
[2018-01-02] MEDS: INSULIN GLARGINE [LANTus] (100 UNITS/ML) SYG SC (08:02)
[2018-01-02] MEDS: ALBUTEROL/IPRATROPIUM (NEB) 3 ML AMP HHN ×3 (08:42→20:24)
[2018-01-02] MEDS ORDERED: HEPARIN 5,000 UNIT/0.5 ML VIAL ×2 (08:54→20:30)
[2018-01-02] MEDS: FLUTICASONE 0.05% 16 GM NAS SPRAY NASAL (08:57)
[2018-01-02] MEDS: DULOXETINE 30 MG CAP DR PO (08:58)
[2018-01-02] MEDS: METOLAZONE 5 MG TAB PO (08:58)
[2018-01-02] MEDS: NIFEdipine (XL) 60 MG TAB PO (08:59)
[2018-01-02] MEDS: HEPARIN SODIUM 5,000 UNIT/ML VIAL SC ×2 (09:06→21:16)
[2018-01-02] MEDS: POTASSIUM CHLORIDE (SR) 20 MEQ TAB PO (11:04)
[2018-01-02] MEDS: ASPIRIN (EC) 81 MG TAB PO (11:13)
[2018-01-02] MEDS: SOD FERRIC GLUC COMPLX 125 MG in SOD CHLORIDE 0.9% 100 ML IVPB (16:56)
[2018-01-02] MEDS: ARIPIPRAZOLE 5 MG TAB PO (20:51)
[2018-01-02] MEDS: ATORVASTATIN 20 MG TAB PO (20:51)
[2018-01-02] MEDS: NIFEdipine (XL) 30 MG TAB PO (20:53)
[2018-01-02] MEDS ORDERED: NIFEdipine (XL) 60 MG TAB PO (21:00)
[2018-01-02] MEDS: LORAZEPAM 2 MG INJ IV (21:05)
[2018-01-03] MEDS: LORAZEPAM 2 MG INJ IV (03:18)
[2018-01-03] MEDS: FUROSEMIDE 40 MG INJ IV ×2 (05:30→17:49)
[2018-01-03 07:05] LABS: ANION GAP 10 (5-13); BLOOD UREA NITROGEN 33 mg/dl (7-20); CALCIUM 9.5 mg/dl (8.4-10.2); CARBON DIOXIDE 39 mmol/L (21-31); CHLORIDE 91 mmol/L (97-110); CREATININE 1.38 mg/dl (0.44-1.00); GLUCOSE 128 mg/dl (70-220); POTASSIUM 4.2 mmol/L (3.5-5.1); SODIUM 140 mmol/L (135-144)
[2018-01-03] MEDS: INSULIN GLARGINE [LANTus] (100 UNITS/ML) SYG SC (07:51)
[2018-01-03] MEDS: INSULIN ASPART [NOVOLOG] 3 ML PEN SC ×7 (07:52→21:00)
[2018-01-03] MEDS: ALBUTEROL/IPRATROPIUM (NEB) 3 ML AMP HHN ×3 (08:23→20:25)
[2018-01-03] MEDS ORDERED: HEPARIN 5,000 UNIT/0.5 ML VIAL ×2 (08:53→20:54)
[2018-01-03] MEDS: FLUTICASONE 0.05% 16 GM NAS SPRAY NASAL (08:56)
[2018-01-03] MEDS: NIFEdipine (XL) 30 MG TAB PO ×2 (08:57→21:01)
[2018-01-03] MEDS: ASPIRIN (EC) 81 MG TAB PO (08:57)
[2018-01-03] MEDS: METOLAZONE 5 MG TAB PO (08:58)
[2018-01-03] MEDS: DULOXETINE 30 MG CAP DR PO (08:58)
[2018-01-03] MEDS: HEPARIN SODIUM 5,000 UNIT/ML VIAL SC ×2 (09:08→21:05)
[2018-01-03] MEDS: POTASSIUM CHLORIDE (SR) 20 MEQ TAB PO (11:29)
[2018-01-03] MEDS: MAGNESIUM HYDROXIDE 30ML CUP PO (11:29)
[2018-01-03] MEDS: DOCUSATE SODIUM 100 MG CAP PO (14:52)
[2018-01-03 18:33] LABS: AADO2 Arterial 44.6 mmHg (7.0-24.0); Allen Test ACCEPTAB; Arterial COHb 0.6 % (0.0-3.0); Arterial Fraction of Oxyhgb 68.3 % (93.0-99.0); Arterial HCO3 41.8 mmol/L (22.0-26.0); Arterial MetHb 0.4 % (0.0-1.5); Arterial Total Hemglobin 11.2 g/dl (12.0-18.0); Arterial pCO2 57.3 mmhg (35-45); MODE ROOM AIR; Site Left Radial
[2018-01-03] MEDS: ATORVASTATIN 20 MG TAB PO (21:00)
[2018-01-04 06:15] LABS: BLOOD UREA NITROGEN 33 mg/dl (7-20); CALCIUM 9.5 mg/dl (8.4-10.2); CHLORIDE 87 mmol/L (97-110); CREATININE 1.35 mg/dl (0.44-1.00); GLUCOSE 128 mg/dl (70-220); POTASSIUM 4.5 mmol/L (3.5-5.1); SODIUM 138 mmol/L (135-144)
[2018-01-04] MEDS: FUROSEMIDE 40 MG INJ IV ×2 (06:19→17:54)
[2018-01-04 06:26] LABS: ANION GAP 10 (5-13); CARBON DIOXIDE 41 mmol/L (21-31)
[2018-01-04] MEDS ORDERED: HEPARIN 5,000 UNIT/0.5 ML VIAL ×2 (08:01→21:49)
[2018-01-04] MEDS: ASPIRIN (EC) 81 MG TAB PO (08:14)
[2018-01-04] MEDS: NIFEdipine (XL) 30 MG TAB PO ×2 (08:15→21:57)
[2018-01-04] MEDS: METOLAZONE 5 MG TAB PO (08:15)
[2018-01-04] MEDS: DULOXETINE 30 MG CAP DR PO (08:15)
[2018-01-04] MEDS: HEPARIN SODIUM 5,000 UNIT/ML VIAL SC ×2 (08:21→22:02)
[2018-01-04] MEDS: ALBUTEROL/IPRATROPIUM (NEB) 3 ML AMP HHN ×3 (08:22→20:00)
[2018-01-04] MEDS: FLUTICASONE 0.05% 16 GM NAS SPRAY NASAL (08:50)
[2018-01-04] MEDS: INSULIN ASPART [NOVOLOG] 3 ML PEN SC ×7 (08:59→21:00)
[2018-01-04] MEDS: INSULIN GLARGINE [LANTus] (100 UNITS/ML) SYG SC (08:59)
[2018-01-04] MEDS: ACETAMINOPHEN 325 MG TAB PO (11:01)
[2018-01-04] MEDS: ATORVASTATIN 20 MG TAB PO (21:56)
[2018-01-05] MEDS: FUROSEMIDE 40 MG INJ IV (05:53)
[2018-01-05] MEDS: ALBUTEROL/IPRATROPIUM (NEB) 3 ML AMP HHN (07:42)
[2018-01-05] MEDS ORDERED: HEPARIN 5,000 UNIT/0.5 ML VIAL (08:15)
[2018-01-05] MEDS: FLUTICASONE 0.05% 16 GM NAS SPRAY NASAL (08:18)
[2018-01-05] MEDS: DULOXETINE 30 MG CAP DR PO (08:18)
[2018-01-05] MEDS: NIFEdipine (XL) 30 MG TAB PO (08:18)
[2018-01-05] MEDS: METOLAZONE 5 MG TAB PO (08:18)
[2018-01-05] MEDS: ASPIRIN (EC) 81 MG TAB PO (08:18)
[2018-01-05] MEDS: INSULIN ASPART [NOVOLOG] 3 ML PEN SC ×4 (08:20→11:38)
[2018-01-05] MEDS: HEPARIN SODIUM 5,000 UNIT/ML VIAL SC (08:22)
[2018-01-05] MEDS: INSULIN GLARGINE [LANTus] (100 UNITS/ML) SYG SC (08:50)
== END 2018-01-05 13:37 | DRG 562 ==
LOC: 6WM 20:34 → E/R 17:47 → MS1 19:30 → ICU 12-26 17:19
PROVIDERS: Internal Medicine
PROC: 0QSHXZZ Reposition Left Tibia, External Approach (ICD-10-PCS; principal; 2017-12-26)
DX: S82.302A Unspecified fracture of lower end of left tibia, initial encounter for closed fracture (principal); I50.33 Acute on chronic diastolic (congestive) heart failure; J96.20 Acute and chronic respiratory failure, unspecified whether with hypoxia or hypercapnia; I13.0 Hypertensive heart and chronic kidney disease with heart failure and stage 1 through stage 4 chronic kidney disease, or unspecified chronic kidney disease; N17.9 Acute kidney failure, unspecified; E11.22 Type 2 diabetes mellitus with diabetic chronic kidney disease; E11.65 Type 2 diabetes mellitus with hyperglycemia; I16.0 Hypertensive urgency; N18.3 Chronic kidney disease, stage 3 (moderate); Z79.82 Long term (current) use of aspirin; Z79.4 Long term (current) use of insulin; D50.9 Iron deficiency anemia, unspecified
CPT/HCPCS: 36600; 71045; 71250; 73600-LT; 73610; 73630-LT; 80048; 80061; 81001; 82728; 82803; 82962; 83036; 83540; 83605; 83735; 83880; 84100; 84439; 84443; 85025; 85610; 85730; 87040; 87081; 87086; 93005; 93306; 93308; 93970; 94640; 94660; 94664; 97162; 97165; 97530; 97535; 99285-25